=== PATIENT | female | born 1960 | race Caucasian/White ===

== ENCOUNTER 2021-09-03 13:37 | Emergency (ER) | payer OTHER ==
[~2021-09-03] VITALS: Ht 149.9 cm; Wt 56.7 kg
[2021-09-03] MEDS ORDERED: AMOX-CLAV 875-1 EACH PO (14:02)
[2021-09-03] MEDS ORDERED: KETO10TA2 PO (14:02)
== END 2021-09-03 14:22 | disposition home or self-care (01) ==
LOC: ER 13:37
DX: K08.89 Other specified disorders of teeth and supporting structures (principal)

== ENCOUNTER → 2022-11-09 | Emergency (ER) | payer OTHER ==
[~2022-11-09] VITALS: Ht 152.4 cm; Wt 51.7 kg
[~2022-11-09] MED LIST: AMOX-CLAV 875-1 EACH PO; KETO10TA2 PO; METRONIDAZOLE500 MG PO; PEPCID AC20 MG PO; ZOFRAN8 MG PO
== END | disposition home or self-care (01) ==
LOC: ER 14:57
DX: R10.13 Epigastric pain (principal); Z91.013 Allergy to seafood

== ENCOUNTER 2023-09-01 10:59 | Emergency (ER) | payer OTHER ==
[~2023-09-01] VITALS: Ht 30.5 cm; Wt 58.1 kg
[2023-09-01 14:23] LABS: HEMATOCRIT 39.2 % (36.0-45.00); HEMOGLOBIN 13.6 g/dL (12.0-15.00); MEAN CELL VOLUME 89.7 fL (80.00-100.00); MEAN CORPUSCULAR HEMOGLOBIN 31.1 pg (27.00-32.0); MEAN CORPUSCULAR HGB CONC 34.7 g/dl (32.0-36.0); PLATELET COUNT 192 K/uL (150-450); RED BLOOD COUNT 4.37 M/uL (4.00-6.00); RED CELL DISTRIBUTION WIDTH 12.6 % (11.5-14.5)
[2023-09-01 14:40] LABS: ALBUMIN 3.4 gm/dL (3.4-5.0); BILIRUBIN TOTAL 0.44 mg/dL (0.3-1.2); BILIRUBIN,CONJUGATED 0.11 mg/dL (0.0-0.2); BILIRUBIN,UNCONJUGATED 0.33 mg/dL (0.0-0.6); CALCIUM 8.7 mg/dL (8.5-10.1); CREATININE SERUM 0.58 mg/dL (0.55-1.02); GFR 105.34; POTASSIUM 3.79 mEq/L (3.5-5.1); TOTAL PROTEIN 7.3 gm/dL (6.4-8.2)
[2023-09-01 14:58] LABS: PH,URINE 6.5 (5.0-8.0); URINE APPEARANCE Clear; URINE BILIRRUBIN Negative (NEGATIVE); URINE BLOOD Negative; URINE COLOR Yellow; URINE GLUCOSE Negative (NEGATIVE); URINE LEUKOCYTE Negative; URINE NITRATE Negative; URINE PROTEIN Negative (NEGATIVE); URINE UROBILINOGEN 0.2 E.U./dl
[2023-09-01 15:23] LABS: URINE EPITHELIAL CELLS 0.6 uL (0.0-38.8); URINE WBC 0.4 uL (0.0-23.2)
== END 2023-09-01 16:42 | disposition home or self-care (01) ==
LOC: ER 10:59
PROVIDERS: General Practice
DX: U07.1 COVID-19 (principal); R19.7 Diarrhea, unspecified; R53.1 Weakness; R11.10 Vomiting, unspecified